=== PATIENT | female | born 1955 | race Caucasian/White ===

== ENCOUNTER 2019-07-09 00:25 | Outpatient (CLI) | payer BC, SELFPAY ==
[2019-07-09 18:00] LABS: SARS-CoV-2 RNA PCR Negative
== END 2019-07-09 00:26 | disposition home or self-care (01) ==
LOC: ANHCOVIDDT 00:26
PROVIDERS: Visit Provider Internal Medicine Gastroenterology
DX: Z01.818 Encounter for other preprocedural examination (principal); Z11.59 Encounter for screening for other viral diseases
CPT/HCPCS: 87635; C9803; U0003

== ENCOUNTER 2019-07-12 01:07 | Day surgery (SDC) | payer BC, SELFPAY ==
[2019-07-05 10:21] VITALS: BMI 21.8
--- NOTE | 2019-07-12 06:48 | WPDANESEPPF ---
Anes - Initial Pre Proc Eval Procedure: Operation Date: 07/12/19 08:00 Proposed Procedures p Screening Colonoscopy - Thaddeus Morgan MD Date/Time: 07/12/19 06:48 Surgeon: Thaddeus Morgan MD Pre Op Diagnosis: NEOPLASM SCREENING Patient Data Age: 64 Gender: F Height: 5 ft 6 in Weight: 61.3 kg Allergies Allergy/AdvReac Type Severity Reaction Status Date / Time levothyroxine sodium Allergy Unknown Cramping Verified 07/05/19 10:21 [From Synthroid] of the Muscles metronidazole Allergy Unknown BURNING Verified 07/05/19 10:07 nitrofurantoin Allergy Unknown Nausea Verified 07/05/19 10:07 Penicillins Allergy Unknown Rash Verified 07/05/19 10:07 Home Medications Medication Instructions Recorded Confirmed Type alprazolam 0.5 mg PO DAILY PRN 07/05/19 07/05/19 History bupropion HCl 300 mg PO DAILY 07/05/19 07/05/19 History cholecalciferol (vitamin D3) 5,000 unit PO DAILY 07/05/19 07/05/19 History [Vitamin D3] cyclobenzaprine 10 mg PO DAILY 07/05/19 07/05/19 History ezetimibe 10 mg PO DAILY 07/05/19 07/05/19 History levothyroxine 50 mcg PO DAILY 07/05/19 07/05/19 History multivit with min-folic acid 200 mcg PO DAILY 07/05/19 07/05/19 History [Adult Multivitamin Gummies] trazodone 100 mg PO DAILY 07/05/19 07/05/19 History Patient hx anesthesia problems: none Family hx anesthesia problems: none [facility] Past Medical History Medical History Anxiety Hyperlipidemia Hypothyroid Social History Social History Smoking status: Never smoker Alcohol intake: current Anes - Eval Final PreProcedure Day of Procedure 07/12/19 06:48 Patient weight: normal Heart: regular rate and rhythm Lungs: clear to auscultation Airway: Mallampati scale class II Neurological: alert and oriented Last oral intake: >/= 8 hours ASA classification: II Emergent: no Anesthetic plan: proceed Anesthesia type and monitoring: general GIVS and standard monitoring Informed Consent: The patient's anesthetic plan and its attendant risks and benefits were discussed with the patient/family/POA. Questions were solicited and answers provided to the satisfaction of the patient/family/POA.
[2019-07-12] MEDS: LACTATED RINGERS 1,000 ML 150 ML IV CONT (07:20)
[2019-07-12 07:30] VITALS: BP 101/63; PULSE 75; RESP 14; TEMP 37.1; O2SAT 99; BMI 22.0
--- NOTE | 2019-07-12 07:50 | P.CONGI_ITS ---
Assessment and Plan Assessment and plan (1) Special screening for malignant neoplasms, colon: Code(s): Z12.11 - Encounter for screening for malignant neoplasm of colon Status: Acute Assessment and Plan: Screening colonoscopy to be performed today. Because of patient's age. She feels fine plan is for colonoscopy further recommendations may be given after endoscopy. GI Consult Note Consult date/time: 07/12/19 07:50 HPI: Gerri Agustin is a 64 year old female Seen in evaluation at the request of Irene Varma. Patient presents for neoplasia screening colonoscopy. Her current weight appetite bowel movements are normal. She denies abdominal pain. She denies any obvious bleeding. Her weight appetite remained normal. Family history is noncontributory. Review of Systems Review of Systems: All systems reviewed & are unremarkable except as noted in HPI and below PMFSH Past Medical History Medical History Anxiety Hyperlipidemia Hypothyroid Social History Social History Smoking status: Never smoker Alcohol intake: current Meds Home Medications and Allergies Home Medications Medication Instructions Recorded Confirmed Type alprazolam 0.5 mg PO DAILY PRN 07/05/19 07/05/19 History bupropion HCl 300 mg PO DAILY 07/05/19 07/05/19 History cholecalciferol (vitamin D3) 5,000 unit PO DAILY 07/05/19 07/05/19 History [Vitamin D3] cyclobenzaprine 10 mg PO DAILY 07/05/19 07/05/19 History ezetimibe 10 mg PO DAILY 07/05/19 07/05/19 History levothyroxine 50 mcg PO DAILY 07/05/19 07/05/19 History multivit with min-folic acid 200 mcg PO DAILY 07/05/19 07/05/19 History [Adult Multivitamin Gummies] trazodone 100 mg PO DAILY 07/05/19 07/05/19 History ibuprofen 200 mg PO Q6H PRN 07/12/19 07/12/19 History polyethylene glycol 3350 [Miralax] 17 g PO DAILY PRN 07/12/19 07/12/19 History Allergies Allergy/AdvReac Type Severity Reaction Status Date / Time levothyroxine sodium Allergy Unknown Cramping Verified 07/12/19 07:21 [From Synthroid] of the Muscles metronidazole Allergy Unknown BURNING Verified 07/12/19 07:21 nitrofurantoin Allergy Unknown Nausea Verified 07/12/19 07:21 Penicillins Allergy Unknown Rash Verified 07/12/19 07:21 Vital Signs Vital Signs - 24 hr 07/12/19 07:30 Temperature 37.1 C Pulse Rate 75 Respiratory Rate 14 Blood Pressure 101/63 Pulse Oximetry 99 Exam Narrative: Exam Narrative: Physical exam reveals patient to be alert. Vital signs are stable. HEENT exam unremarkable. Lungs are clear to auscultation and percussion. Heart is without murmur or extra sounds. Abdominal exam bowel s ounds are present soft nontender with no hepatosplenomegaly. Digital external rectal exam is normal.
[2019-07-12 08:53] VITALS: BP 111/75; PULSE 77; RESP 16; O2SAT 99
[2019-07-12 09:03] VITALS: BP 113/53; PULSE 77; RESP 16; O2SAT 100
[2019-07-12 09:13] VITALS: BP 113/79; PULSE 66; RESP 16; O2SAT 100
[2019-07-12 09:23] VITALS: BP 126/84; PULSE 62; RESP 16; O2SAT 100
--- NOTE | 2019-07-12 09:59 | OP_ITS ---
DATE OF PROCEDURE: 07/12/2019 PROCEDURE: Colonoscopy. PREOPERATIVE DIAGNOSIS: Neoplasia screening. POSTOPERATIVE DIAGNOSIS: Internal hemorrhoids. DESCRIPTION OF PROCEDURE: Informed consent for the colonoscopy is obtained from the patient. The risks, benefits, alternatives, and indications, these were all discussed thoroughly with the patient prior to starting sedation. The risks include, but are not limited to, adverse reaction to medications including allergies, the risk of bleeding and possible need for transfusion, the risk of perforation and possible need for surgery, and the risk for missed pathology. The patient voiced clear understanding and agreed to proceed. The patient is sedated with anesthesia assistance. Following findings, digital external rectal exam is normal. Colonoscopy advanced from anus to cecum. Preparation throughout the colon is excellent. Upon withdrawing the instrument, no polyps, masses, or other lesions were identified. U-turn within the rectum does confirm small internal hemorrhoids. Withdrawal time from the cecum, approximately 8 minutes. IMPRESSION: Internal hemorrhoids. Not felt to be clinically significant. PLAN: Plan is for patient to consider high-fiber diet. Followup colonoscopy is suggested in 10 years. Plan is for patient return to the care of attending physician, Dr. Irene Varma. Vangie I MT: Elvia
== END 2019-07-12 09:35 | disposition home or self-care (01) ==
PROVIDERS: Visit Provider Internal Medicine Gastroenterology
PROC: 0DJD8ZZ Inspection of Lower Intestinal Tract, Via Natural or Artificial Opening Endoscopic (ICD-10-PCS; CPT 45378; principal; 2019-07-12 08:00)
DX: Z12.11 Encounter for screening for malignant neoplasm of colon (principal); K64.8 Other hemorrhoids; E78.5 Hyperlipidemia, unspecified; E03.9 Hypothyroidism, unspecified; F41.9 Anxiety disorder, unspecified
CPT/HCPCS: 45378; J2704; J7120